=== PATIENT | male | born 1995 | race Caucasian/White ===

== ENCOUNTER 2017-08-03 00:37 | Emergency (ER) | payer OTHER ==
[~2017-08-03] VITALS: Ht 177.8 cm; Wt 67.2 kg
[2017-08-03 01:53] LABS: INTERNAL CONTROL VALID? YES; MONOSPOT (MONONUCLEOSIS SEROL) NEGATIVE
[2017-08-03] MEDS ORDERED: AUGMENTIN875 MG PO (02:12)
[2017-08-03 02:56] VITALS: BP 127/76
== END 2017-08-03 02:57 | disposition home or self-care (01) ==
LOC: EME 00:37
PROVIDERS: Physician Assistant
DX: J02.0 Streptococcal pharyngitis (principal)
CPT/HCPCS: 86308; 87651 90; 99281; 99283